=== PATIENT | female | born 1995 | race Caucasian/White ===

== ENCOUNTER 2019-07-10 15:27 | Emergency (ER) | payer SELFPAY ==
[~2019-07-10] VITALS: Ht 157.5 cm; Wt 95.3 kg
[2019-07-10 15:37] VITALS: BP_SYST 127
--- NOTE | 2019-07-10 15:44 | NUR ---
Patient triaged and placed in waiting room. VSS and patient appears in no acute distress at this time. Awaiting available bed, and MD notified of need for MSE.
--- NOTE | 2019-07-10 17:20 | NUR ---
Patient to ER bed 6 to gown for evaluation. Side rails up. Report given to WALDO Connelly.
--- NOTE | 2019-07-10 17:25 | NUR ---
Patient arrived in the ED c/o headaches that goes down to the shoulder and neck that started yesterday. Denied any loss of consciousness. Denied any chest pain or SOB. Denied any fevers, chills, nausea or vomiting. Patient is alert and oriented x4, respirations even and unlabored, speaking in full sentences, and ambulating with a steady gait. VSS, pain level 7/10. Informed of the approximate wait time. Instructed to notify ED staff for any changes in condition or worsening of symptoms while waiting to be seen by the provider. Patient verbalized understanding.
--- NOTE | 2019-07-10 17:26 | NUR ---
ER Dr. Tong at bedside examining patient.
[2019-07-10 17:45] VITALS: BP_SYST 127
--- NOTE | 2019-07-10 17:52 | NUR ---
Patient given written and verbal discharge instructions and verbalizes understanding. ER MD discussed with patient the results and treatment provided. Patient in stable condition. ID arm band removed. Rx of Flexeril, Valium and Naproxen given. Patient educated on pain management and to follow up with PMD. Pain Scale 0/10. Opportunity for questions provided and answered. Medication side effect fact sheet provided.
== END 2019-07-10 17:45 | disposition home or self-care (01) ==
LOC: SED 15:27
DX: G43.909 Migraine, unspecified, not intractable, without status migrainosus (principal); M54.5 Low back pain; J45.909 Unspecified asthma, uncomplicated; F41.9 Anxiety disorder, unspecified
CPT/HCPCS: 70450-TC; 72125-TC; 73030; 81002; 81025; 99285